=== PATIENT | female | born 1950 | race Caucasian/White ===

== ENCOUNTER → 2016-10-06 | Outpatient (CLI) | payer OTHER ==
[~2016-10-06] MED LIST: ALEVE220 MG; CALCIUM PO; CHLORZOXAZONE500 MG PO; CINNAMON; EQL FLAXSEED O1 EACH PO; FLAXSEED OIL1000 MG PO; LIDODERM 5%1 PATC1 TOP; MEDROL DOSPAK21 TA1 PO; MEDROL DOSPAK21 TAB PO; MEDROLDOSEPACK; NABUMETONE 500500 M1 PO; NORCO 10-325 T1 EACH PO; PERCOCET 5-3251 EACH PO; PROLOPRIM100 MG PO; RELAFEN500 MG PO; VITAMIN D-32000 UNIT PO; VITAMINC500 PO; VOLTAREN GEL 1100 G1 TOP; ZANAFLEX4 M1; ZOFRAN8 MG PO; ZOLOFT 50 MG TA50 M1 PO; ZOLOFT100 MG PO
== END ==
LOC: CAT 09:23
DX: R91.1 Solitary pulmonary nodule (principal)

== ENCOUNTER → 2017-03-30 | Outpatient (CLI) | payer OTHER | LOC: RAD 01:38 | DX: Z12.31 Encounter for screening mammogram for malignant neoplasm of breast (principal) ==

== ENCOUNTER → 2017-09-14 | Outpatient (CLI) | payer OTHER | LOC: CAT 09:25 | DX: R91.1 Solitary pulmonary nodule (principal) ==

== ENCOUNTER → 2017-10-18 | Outpatient (CLI) | payer OTHER | LOC: NUC 05:58 | DX: N91.2 Amenorrhea, unspecified (principal); Z78.0 Asymptomatic menopausal state ==

== ENCOUNTER → 2018-04-19 | Outpatient (CLI) | payer OTHER | LOC: RAD 02:39 | DX: Z12.31 Encounter for screening mammogram for malignant neoplasm of breast (principal) ==

== ENCOUNTER → 2018-10-12 | Outpatient (CLI) | payer OTHER | LOC: CAT 15:49 | DX: R91.8 Other nonspecific abnormal finding of lung field (principal); J98.4 Other disorders of lung ==

== ENCOUNTER → 2019-04-20 | Outpatient (CLI) | payer OTHER | LOC: RAD 01:47 | DX: Z12.31 Encounter for screening mammogram for malignant neoplasm of breast (principal) ==

== ENCOUNTER → 2020-03-12 | Outpatient (CLI) | payer OTHER | LOC: CAT 10:59 | PROVIDERS: ATTEND Family Medicine | DX: R91.8 Other nonspecific abnormal finding of lung field (principal); M47.9 Spondylosis, unspecified; J98.4 Other disorders of lung ==

== ENCOUNTER → 2020-05-19 | Outpatient (CLI) | payer OTHER | LOC: BC 04-21 13:04 | PROVIDERS: ATTEND Family Medicine | DX: Z12.31 Encounter for screening mammogram for malignant neoplasm of breast (principal); N95.9 Unspecified menopausal and perimenopausal disorder; Z01.419 Encounter for gynecological examination (general) (routine) without abnormal findings; M85.88 Other specified disorders of bone density and structure, other site ==

== ENCOUNTER → 2021-03-26 | Outpatient (CLI) | payer OTHER ==
[2021-03-26 11:25] LABS: CREATININE 0.8 mg/dL (0.6-1.0)
== END ==
LOC: CAT 10:11
PROVIDERS: ATTEND Family Medicine
DX: R91.1 Solitary pulmonary nodule (principal); R91.8 Other nonspecific abnormal finding of lung field

== ENCOUNTER → 2021-05-26 | Outpatient (CLI) | payer OTHER | LOC: RAD 11:00 | PROVIDERS: ATTEND Family Medicine | DX: Z12.31 Encounter for screening mammogram for malignant neoplasm of breast (principal) ==